=== PATIENT | female | born 1960 | race Caucasian/White ===

== ENCOUNTER 2017-05-01 17:59 | Emergency (ER) | payer OTHER ==
[~2017-05-01] VITALS: Ht 160 cm; Wt 66.2 kg
[~2017-05-01 17:59] MED LIST: CETI5CHW CHEW
[2017-05-01 18:01] VITALS: BP 136/101; PULSE 89; RESP 16; TEMP 98.9; O2SAT 97
--- NOTE | 2017-05-01 18:23 | PD ---
HPI Chief Complaint: Edema Time Seen by Provider: 18:08 Travel History International Travel<30 days: No Contact w/Intl Traveler<30days: No Traveled to known affect area: No History of Present Illness HPI 57-year-old female with recent diagnosis of CLL, initially evaluated at our [place] emergency department, sent here for right lower extremity ultrasound to rule out DVT. Patient has had right medial knee pain for about a week which occasionally radiates to her anterior beach. She reports that the symptoms are worse at night. 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 She has also had some swelling in her right calf. Pain is mainly over her right medial knee and right anterior beach, constant, moderate, worse with movement and palpation. She denies history of DVT or PE. No chest pain or dyspnea. No fevers. PFSH Past Medical History Hx Anticoagulant Therapy: No Cardiovascular Problems: Yes (HTN) Chemotherapy: No (CLL) Diabetes: No ?: Not Past Surgical History Other Surgery: Yes (cyst removal throat, double hernia, inner thigh lipo, tumor removed r arm) Social History Alcohol Use: No Tobacco Use: No Substance Use: No Allergies-Medications (Allergen,Severity, Reaction): Coded Allergies: Penicillins (Verified Allergy, Severe, Anaphylaxis, 05/01/17) Reported Meds & Prescriptions Reported Meds & Active Scripts Active No Active Prescriptions or Reported Medications Review of Systems Except as stated in HPI: all other systems reviewed are Neg Physical Exam Narrative GENERAL: Well-developed, well-nourished, comfortable, no apparent distress. SKIN: Focused skin assessment warm/dry. No rash. HEAD: Atraumatic. Normocephalic. EYES: Pupils equal and round. No scleral icterus. No injection or drainage. ENT: No nasal bleeding or discharge. Mucous membranes pink and moist. NECK: Trachea midline. No JVD. CARDIOVASCULAR: Regular rate and rhythm. Bilateral dorsalis pedis pulses are brisk and equal. RESPIRATORY: No accessory muscle use. GASTROINTESTINAL: Abdomen soft, non-tender, nondistended. Hepatic and splenic margins not palpable. MUSCULOSKELETAL: Mild right lower extremity edema from ankle to knee when compared to the left. All compartments in bilateral lower extremities are supple. There is mild to moderate tenderness to the right knee/calf. Normal range of motion in right lower extremity. No pain with passive flexion or extension of the right ankle joint. Bilateral feet are warm with normal capillary refill. NEUROLOGICAL: Awake and alert. No obvious cranial nerve deficits. Motor grossly within normal limits. Normal speech. PSYCHIATRIC: Appropriate mood and affect; insight and judgment normal. Data Data Last Documented VS Vital Signs Date Time Temp Pulse Resp B/P (MAP) Pulse Ox O2 Delivery O2 Flow Rate FiO2 05/01/17 18:21 Room Air 05/01/17 18:01 98.9 89 16 136/101 (113) 97 Orders Orders Complete Blood Count With Diff (05/01/17 18:21) Comprehensive Metabolic Panel (05/01/17 18:21) Prothrombin Time / Inr (Pt) (05/01/17 18:21) Act Partial Throm Time (Ptt) (05/01/17 18:21) Iv Access Insert/Monitor (05/01/17 18:21) Ecg Monitoring (05/01/17 18:21) Oximetry (05/01/17 18:21) Sodium Chloride 0.9% Flush (Ns Flush) (05/01/17 18:30) Knee, Complete (4vws) (05/01/17 ) Tibia/Fibula (Ap/Lat) (05/01/17 ) Us Leg Venous Doppler (05/01/17 ) Labs Laboratory Tests Test 05/01/17 18:30 White Blood Count 11.9 TH/MM3 Red Blood Count 4.26 MIL/MM3 Hemoglobin 12.8 GM/DL Hematocrit 37.8 % Mean Corpuscular Volume 88.7 FL Mean Corpuscular Hemoglobin 30.0 PG Mean Corpuscular Hemoglobin Concent 33.8 % Red Cell Distribution Width 12.5 % Platelet Count 270 TH/MM3 Mean Platelet Volume 7.8 FL CBC Comment AUTO DIFF MDM Medical Decision Making Medical Screen Exam Complete: Yes Emergency Medical Condition: Yes Differential Diagnosis DVT, muscular strain, compartment syndrome unlikely Narrative Course Vital signs reviewed. Right tib-fib x-ray: No acute abnormality. Right knee x-ray: No acute right knee abnormality. At approximately 7:00 PM at the end of my shift the patient was signed out to Dr. Benton to follow-up with right lower extremity ultrasound and formulate a disposition. Scripts No Active Prescriptions or Reported Meds Leon Hawk MD May 01, 2017 18:23
[2017-05-01] MEDS ORDERED: SODIUM CHLORIDE 0.9% FLUSH 10 ML FLUSH IV FLUSH PRN (18:30)
--- NOTE | 2017-05-01 18:51 | RADRPT ---
EXAM DATE/TIME: 05/01/2017 18:30 [facility] COMPARISON: No previous studies available for comparison. INDICATIONS : Right lower leg and knee pain , no known injury MEDICAL HISTORY : None. SURGICAL HISTORY : None. ENCOUNTER: Initial ACUITY: 1 week PAIN SCORE: 6/10 LOCATION: Right lower leg FINDINGS: Two views of the right leg demonstrate no fracture or dislocation. Mineralization is within normal li mits. No soft tissue abnormality or radiopaque foreign body is identified. CONCLUSION: No acute abnormality is identified. Nicholas De La Rosa MD on May 01, 2017 at 18:48 Board Certified Radiologist. This report was verified electronically.
--- NOTE | 2017-05-01 18:52 | RADRPT ---
EXAM DATE/TIME: 05/01/2017 18:33 [facility] COMPARISON: No previous studies available for comparison. INDICATIONS : Right knee and right lower leg pain , no known injury MEDICAL HISTORY : None. SURGICAL HISTORY : None. ENCOUNTER: Initial ACUITY: 1 week PAIN SCORE: 6/10 LOCATION: Right knee FINDINGS: Four views of the right knee demonstrate no fracture or dislocation. No joint effusion is present. Th ere is no significant arthropathy. No soft tissue abnormality or radiopaque foreign body is identifie d. CONCLUSION: No acute right knee abnormality is identified. Nicholas De La Rosa MD on May 01, 2017 at 18:49 Board Certified Radiologist. This report was verified electronically.
[2017-05-01 18:57] LABS: HEMATOCRIT 37.8 % (35.0-46.0); HEMOGLOBIN 12.8 GM/DL (11.6-15.3); MEAN CELL VOLUME 88.7 FL (80.0-100.0); MEAN CORPUSCULAR HGB CONC 33.8 % (32.0-36.0); MEAN PLATELET VOLUME 7.8 FL (7.0-11.0); PLATELET COUNT 270 TH/MM3 (150-450); RED BLOOD COUNT 4.26 MIL/MM3 (4.00-5.30); RED CELL DISTRIBUTION WIDTH 12.5 % (11.6-17.2); WHITE BLOOD COUNT 11.9 TH/MM3 (4.0-11.0)
[2017-05-01 19:12] LABS: CHLORIDE 108 MEQ/L (98-107); SODIUM (NA) 138 MEQ/L (136-145)
[2017-05-01 19:15] LABS: ALBUMIN 4.2 GM/DL (3.4-5.0); BICARBONATE 23.1 MEQ/L (21.0-32.0); CALCIUM 9.1 MG/DL (8.5-10.1); GLUCOSE,RANDOM 91 MG/DL (74-106)
[2017-05-01 19:16] LABS: BLOOD UREA NITROGEN 13 MG/DL (7-18)
[2017-05-01 19:18] LABS: ALT (GPT) 22 U/L (10-53); AST (GOT) 24 U/L (15-37); GLOMERULAR FILTRATION RATE 87 ML/MIN (>89)
[2017-05-01 19:20] LABS: LYMPHOCYTES 50 % (9-44); MONOCYTES 2 % (0-8); NEUTROPHIL # MANUAL DIFF 5.6 TH/MM3 (1.8-7.7); POLYS (SEG NEUTROPHILS) 47 % (16-70); TOTAL BILIRUBIN ADULT 0.2 MG/DL (0.2-1.0); TOTAL PROTEIN 7.2 GM/DL (6.4-8.2)
[2017-05-01 19:21] LABS: ALKALINE PHOSPHATASE 82 U/L (45-117)
[2017-05-01 19:28] VITALS: RESP 16; O2SAT 98
--- NOTE | 2017-05-01 19:35 | RADRPT ---
EXAM DATE/TIME: 05/01/2017 19:17 [facility] COMPARISON: No previous studies available for comparison. INDICATIONS : Right leg pain. MEDICAL HISTORY : Hypertension. Right leg pain. SURGICAL HISTORY : Right thigh liposuction. ENCOUNTER: Initial ACUITY: 1 day PAIN SCORE: 3/10 LOCATION: Right leg. TECHNIQUE: Venous ultrasound of the leg was performed from the inguinal ligament to the proximal calf. Real-cirilo e, color Doppler and spectral tracing, compression and augmentation techniques were used. FINDINGS: There is normal compressibility of the deep venous system from the inguinal region to the proximal ca lf. No echogenic clot is seen in the lumen of the common femoral, femoral, popliteal, and posterior tibial veins. There is a normal response of the venous system to proximal and distal augmentation an d respiration. CONCLUSION: No DVT is identified within the right lower extremity. Nicholas De La Rosa MD on May 01, 2017 at 19:33 Board Certified Radiologist. This report was verified electronically.
[2017-05-01 19:36] LABS: PROTHROMBIN TIME - PATIENT 10.4 SEC (9.8-11.6)
[2017-05-01 19:59] VITALS: BP 149/94; PULSE 89; RESP 16; O2SAT 99
--- NOTE | 2017-05-01 20:02 | PD ---
Physical Exam Time Seen by Provider: 19:55 Narrative left this patient with me to check the ultrasound and likely discharge if normal. Data Data Last Documented VS Vital Signs Date Time Temp Pulse Resp B/P (MAP) Pulse Ox O2 Delivery O2 Flow Rate FiO2 05/01/17 19:28 16 98 Room Air 05/01/17 18:01 98.9 89 136/101 (113) Orders Orders Complete Blood Count With Diff (05/01/17 18:21) Comprehensive Metabolic Panel (05/01/17 18:21) Prothrombin Time / Inr (Pt) (05/01/17 18:21) Act Partial Throm Time (Ptt) (05/01/17 18:21) Iv Access Insert/Monitor (05/01/17 18:21) Ecg Monitoring (05/01/17 18:21) Oximetry (05/01/17 18:21) Sodium Chloride 0.9% Flush (Ns Flush) (05/01/17 18:30) Knee, Complete (4vws) (05/01/17 ) Tibia/Fibula (Ap/Lat) (05/01/17 ) Us Leg Venous Doppler (05/01/17 ) Labs Laboratory Tests Test 05/01/17 18:30 White Blood Count 11.9 TH/MM3 Red Blood Count 4.26 MIL/MM3 Hemoglobin 12.8 GM/DL Hematocrit 37.8 % Mean Corpuscular Volume 88.7 FL Mean Corpuscular Hemoglobin 30.0 PG Mean Corpuscular Hemoglobin Concent 33.8 % Red Cell Distribution Width 12.5 % Platelet Count 270 TH/MM3 Mean Platelet Volume 7.8 FL CBC Comment AUTO DIFF Differential Total Cells Counted 100 Neutrophils % (Manual) 47 % Lymphocytes % 50 % Monocytes % 2 % Eosinophils % 1 % Neutrophils # (Manual) 5.6 TH/MM3 Differential Comment FINAL DIFF MANUAL Platelet Estimate NORMAL Platelet Morphology Comment NORMAL Red Cell Morphology Comment NORMAL Prothrombin Time 10.4 SEC Prothromb Time International Ratio 1.0 RATIO Activated Partial Thromboplast Time 21.0 SEC Blood Urea Nitrogen 13 MG/DL Creatinine 0.70 MG/DL Random Glucose 91 MG/DL Total Protein 7.2 GM/DL Albumin 4.2 GM/DL Calcium Level 9.1 MG/DL Alkaline Phosphatase 82 U/L Aspartate Amino Transf (AST/SGOT) 24 U/L Alanine Aminotransferase (ALT/SGPT) 22 U/L Total Bilirubin 0.2 MG/DL Sodium Level 138 MEQ/L Potassium Level 3.8 MEQ/L Chloride Level 108 MEQ/L Carbon Dioxide Level 23.1 MEQ/L Anion Gap 7 MEQ/L Estimat Glomerular Filtration Rate 87 ML/MIN [facility] Medical Record Reviewed: Yes Supervised Visit with BRIANNA: No Interpretation(s) The ultrasound shows no DVT. The CBC is normal except for a white count of 11, 900. The complete metabolic profile shows a GFR of 87 but is otherwise unremarkable. The coagulation profile shows an APTT of 21 but is otherwise normal. X-rays of the tibia/fibula and right knee show no acute abnormality. Differential Diagnosis DVT, right leg swelling etiology undetermined, CLL Narrative Course The slight elevation of the white count is likely the CLL. The patient has right lower leg swelling etiology undetermined. No DVT is been shown on the ultrasound. Plan: The patient will elevate the leg above her heart as much as possible to keep the swelling down. She needs to follow-up this week with her primary care physician. Diagnosis Primary Impression: Pain and swelling of right lower leg Additional Instruction: As we discussed, elevate the right leg above your heart. Follow-up with your primary care physician. Even though a clot was not demonstrated today you still have a possibility in the next few weeks of developing a clot. Her primary care physician needs to follow-up for this. Med/Other Pt SpecificInfo: No Change to Meds Scripts No Active Prescriptions or Reported Meds Disposition: 01 DISCHARGE HOME Condition: Stable Maximiliano Benton MD May 01, 2017 20:02
== END 2017-05-01 20:14 | disposition home or self-care (01) ==
LOC: PHED 17:59
DX: M79.661 Pain in right lower leg (principal); M79.89 Other specified soft tissue disorders; I10 Essential (primary) hypertension; Z88.0 Allergy status to penicillin; Z85.6 Personal history of leukemia
CPT/HCPCS: 73564; 73590; 80053; 85007; 85027; 85610; 85730; 93971; 99281